=== PATIENT | male | born 1985 | race African-American/Black ===

== ENCOUNTER 2020-11-28 18:06 | Emergency (ER) | payer OTHER ==
[~2020-11-28] VITALS: Ht 177.8 cm; Wt 81.7 kg
[2020-11-28 21:16] VITALS: BP 122/75
== END 2020-11-28 21:18 | disposition home or self-care (01) ==
LOC: M ED 18:06
DX: F43.0 Acute stress reaction (principal); F32.9 Major depressive disorder, single episode, unspecified

== ENCOUNTER 2021-02-07 08:16 | Emergency (ER) | payer OTHER ==
[~2021-02-07] VITALS: Ht 177.8 cm; Wt 82.4 kg
[2021-02-07] MEDS ORDERED: METOCLOPRAMIDE INJ 10MG/2ML VIAL (J2765 PER 1) IV ONE (11:20)
[2021-02-07 11:40] LABS: BASO % 0.6 % (0.0-1.0); EOS % 0.6 % (0.0-3.0); HEMATOCRIT 46.2 % (42.0-52.0); HEMOGLOBIN 15.3 g/dl (13.5-17.5); LYMPH % 56.7 % (24.0-44.0); MEAN CORPUSCULAR HEMOGLOBIN 27.9 pg (27.0-33.0); MEAN CORPUSCULAR HGB CONC 33.1 g/dl (32.0-36.5); MEAN CORPUSCULAR VOLUME 84.2 fl (80.0-96.0); MONO # 0.6 10^3/uL (0.0-0.8); MONO % 11.4 % (2.0-8.0); NEUTROPHILS # 1.6 10^3/uL (1.5-8.5); NEUTROPHILS % 30.5 % (36.0-66.0); PLATELET COUNT, AUTOMATED 234 10^3/uL (150-450); RED BLOOD COUNT 5.49 10^6/uL (4.30-6.10); WHITE BLOOD COUNT 5.4 10^3/uL (4.0-10.0)
--- NOTE | 2021-02-07 12:03 | REP ---
INDICATION: back pain, chronic,. COMPARISON: None. TECHNIQUE: Five views of the lumbar spine FINDINGS: . Lumbar vertebral body heights are preserved. Alignment is normal. Disc spaces are maintained. There is minimal discogenic spurring at L3-4. Pedicles and posterior elements are intact. There is no evidence of spondylolysis or spondylolisthesis. Psoas margins are symmetric. Sacrum and SI joints are intact. IMPRESSION: Mild degenerative disc changes at L3-4. Otherwise negative lumbar spine radiographs. <Electronically signed by Manny Schneider > 02/07/21 [id number]
--- NOTE | 2021-02-07 12:09 | REP ---
INDICATION: right knee pain. COMPARISON: None. TECHNIQUE: Five views of the right knee are provided. FINDINGS: Five views of the 5 right knee demonstrate normal bones, joints, and soft tissues. No fracture or subluxation is seen. No opaque foreign body noted. A normal fabella is present posteriorly. IMPRESSION: Negative right knee series. <Electronically signed by Manny Schneider > 02/07/21 [id number]
[2021-02-07 12:14] LABS: ALBUMIN 3.7 GM/DL (3.2-5.2); ALT/SGPT 24 U/L (12-78); BILIRUBIN,TOTAL 0.4 MG/DL (0.2-1.0); BLOOD UREA NITROGEN 15 MG/DL (7-18); CALCIUM LEVEL 8.9 MG/DL (8.5-10.1); CARBON DIOXIDE LEVEL 26 MEQ/L (21-32); CHLORIDE LEVEL 108 MEQ/L (98-107); CREATININE FOR GFR 1.15 MG/DL (0.70-1.30); GLOMERULAR FILTRATION RATE > 60.0 (>60); GLUCOSE, FASTING 79 MG/DL (70-100); POTASSIUM SERUM 4.6 MEQ/L (3.5-5.1); SODIUM LEVEL 138 MEQ/L (136-145); TOTAL PROTEIN 7.9 GM/DL (6.4-8.2)
--- NOTE | 2021-02-07 12:26 | REP ---
INDICATION: headache, blurred vision, wakes with headache chronic. COMPARISON: None. TECHNIQUE: Helical scanning is acquired. 5 mm axial images were reformatted. Coronal MPR images were generated. 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 Bone window settings demonstrate no bony calvarial defect or fracture. There is evidence of an old appearing blowout fracture of the medial wall of the left orbit. Orbital floor is not included in the field of view. No intraorbital abnormality is appreciated. Visualized paranasal sinuses are clear. On soft tissue window settings, the lateral, 3rd, and 4th ventricles are normal in size and position. There is no evidence of intracranial hemorrhage. No extra-axial fluid collection is seen. No mass or midline shift is seen. There are fairly prominent low-density areas in the subcortical regions of the parietal white matter bilaterally. In this age group, question is raised of demyelinating disease. Consider MRI scanning. IMPRESSION: There is no evidence of intracranial hemorrhage, acute infarction, or mass. However, there are subcortical white matter low-density areas in the parietal lobes bilaterally raising question of demyelinating disorder. Consider MRI scanning. <Electronically signed by Manny Schneider > 02/07/21 [id number]
[2021-02-07 12:28] LABS: RSV AMPLIFICATION NEGATIVE (NEGATIVE)
[2021-02-07 13:20] VITALS: BP 117/70
== END 2021-02-07 13:40 | disposition home or self-care (01) ==
LOC: M ED 08:16
DX: R51.9 Headache, unspecified (principal); H53.8 Other visual disturbances; R93.0 Abnormal findings on diagnostic imaging of skull and head, not elsewhere classified; G89.29 Other chronic pain; M25.561 Pain in right knee; M51.36 Other intervertebral disc degeneration, lumbar region
CPT/HCPCS: 70450; 72110; 73564; 80053; 85025; 87631; 96374; 99284; J2765

== ENCOUNTER → 2021-06-04 | Outpatient (REF) | LOC: M RAD 10:58 | PROVIDERS: ATTEND Internal Medicine | DX: M19.90 Unspecified osteoarthritis, unspecified site (principal) ==

== ENCOUNTER → 2021-06-09 | Outpatient (CLI) | payer OTHER | LOC: M PLALAB 15:46 | PROVIDERS: ATTEND Psychiatry & Neurology Neurology | DX: G93.89 Other specified disorders of brain (principal) ==

== ENCOUNTER 2021-08-23 15:54 | Emergency (ER) | payer OTHER ==
[2021-08-23] MEDS ORDERED: RIZA10TA58 PO (16:22)
[2021-08-23] MEDS ORDERED: ACET1TAB55 PO (16:22)
[2021-08-23] MEDS ORDERED: BUPR150T12 PO (16:22)
[2021-08-23] MEDS ORDERED: AMIT10TA7 PO (16:22)
[2021-08-23] MEDS ORDERED: ISOVUE-370 76% 100ML VIAL As Ordered ONE (16:47)
[2021-08-23 16:48] LABS: BASO % 0.7 % (0.0-1.0); EOS % 0.2 % (0.0-3.0); HEMATOCRIT 46.2 % (42.0-52.0); HEMOGLOBIN 15.4 g/dl (13.5-17.5); LYMPH # 1.8 10^3/uL (1.5-5.0); LYMPH % 40.8 % (24.0-44.0); MEAN CORPUSCULAR HGB CONC 33.3 g/dl (32.0-36.5); MONO # 0.4 10^3/uL (0.0-0.8); MONO % 8.9 % (2.0-8.0); NEUTROPHILS # 2.2 10^3/uL (1.5-8.5); NEUTROPHILS % 49.2 % (36.0-66.0); PLATELET COUNT, AUTOMATED 285 10^3/uL (150-450); WHITE BLOOD COUNT 4.5 10^3/uL (4.0-10.0)
[2021-08-23 17:10] LABS: CK-MB VALUE MASS 2.2 NG/ML (<3.6)
[2021-08-23] MEDS ORDERED: ONDANSETRON 4MG/2ML VIAL As Ordered ONE (17:11)
[2021-08-23 17:23] LABS: ACETAMINOPHEN LEVEL < 2.0 UG/ML (10.0-30.0); ALBUMIN 3.9 GM/DL (3.2-5.2); ALT/SGPT 23 U/L (12-78); BILIRUBIN,DIRECT 0.2 MG/DL (0.0-0.2); BILIRUBIN,TOTAL 0.5 MG/DL (0.2-1.0); BLOOD UREA NITROGEN 9 MG/DL (7-18); CALCIUM LEVEL 9.3 MG/DL (8.5-10.1); CARBON DIOXIDE LEVEL 24 MEQ/L (21-32); CHLORIDE LEVEL 109 MEQ/L (98-107); CREATININE FOR GFR 1.06 MG/DL (0.70-1.30); ETHYL ALCOHOL (ETHANOL) < 0.003 % (0.000-0.010); GLOMERULAR FILTRATION RATE > 60.0 (>60); GLUCOSE, FASTING 91 MG/DL (70-100); POTASSIUM SERUM 3.8 MEQ/L (3.5-5.1); SALICYLATE LEVEL < 1.7 MG/DL (5.0-30.0); SODIUM LEVEL 141 MEQ/L (136-145); TOTAL PROTEIN 7.7 GM/DL (6.4-8.2)
[2021-08-23 17:32] LABS: AMPHETAMINES LEVEL URINE NEGATIVE (NEGATIVE); BARBITURATES URINE NEGATIVE (NEGATIVE); BENZODIAZEPINES URINE NEGATIVE (NEGATIVE); CANNABINOIDS URINE NEGATIVE (NEGATIVE); COCAINE METABOLITE URINE NEGATIVE (NEGATIVE); METHADONE URINE NEGATIVE (NEGATIVE); OPIATES URINE NEGATIVE (NEGATIVE); PHENCYCLIDINE URINE NEGATIVE (NEGATIVE)
[2021-08-23] MEDS ORDERED: ONDANSETRON 4MG/2ML VIAL IV ONE (17:55)
[2021-08-23] MEDS ORDERED: RIZATRIPTAN MLT 10 MG TAB PO PRN (18:20)
[2021-08-23] MEDS ORDERED: HOME MED LIST COMPLETE! XX SCH (20:40)
[2021-08-23 20:52] LABS: RSV AMPLIFICATION NEGATIVE (NEGATIVE)
[2021-08-23 21:59] VITALS: BP 138/80
== END 2021-08-23 22:29 | disposition home or self-care (01) ==
LOC: M ED 15:54 → EDBD 15:54 → M ED 22:29
DX: Z04.1 Encounter for examination and observation following transport accident (principal); Z04.6 Encounter for general psychiatric examination, requested by authority; G89.29 Other chronic pain; M25.579 Pain in unspecified ankle and joints of unspecified foot; M25.561 Pain in right knee; M25.562 Pain in left knee; G43.909 Migraine, unspecified, not intractable, without status migrainosus; Z79.899 Other long term (current) drug therapy
CPT/HCPCS: 36415; 70450; 70486; 71260; 72125; 72128; 72131; 73564; 73610; 74177; 80047; 80048; 80076; 80143; 80307; 82077; 82550; 82553; 84443; 84484; 85025; 87631; 93005; 93041; 94760; 96374; 99285; J2405; Q9967

== ENCOUNTER 2021-09-05 16:45 | Emergency (ER) | payer OTHER ==
[~2021-09-05] VITALS: Ht 180.3 cm; Wt 81.4 kg
[~2021-09-05 16:45] MED LIST: ACET1TAB55 PO; AMIT10TA7 PO; BUPR150T12 PO; RIZA10TA58 PO
[2021-09-05] MEDS ORDERED: D 50CAP2 PO (17:48)
[2021-09-05 18:49] LABS: MEAN CORPUSCULAR HEMOGLOBIN 28.5 pg (27.0-33.0); MEAN CORPUSCULAR HGB CONC 33.3 g/dl (32.0-36.5); MEAN CORPUSCULAR VOLUME 85.6 fl (80.0-96.0); PLATELET COUNT, AUTOMATED 269 10^3/uL (150-450); RED BLOOD COUNT 5.26 10^6/uL (4.30-6.10); WHITE BLOOD COUNT 6.4 10^3/uL (4.0-10.0)
[2021-09-05 19:23] LABS: AMPHETAMINES LEVEL URINE NEGATIVE (NEGATIVE); BARBITURATES URINE NEGATIVE (NEGATIVE); BENZODIAZEPINES URINE NEGATIVE (NEGATIVE); CANNABINOIDS URINE NEGATIVE (NEGATIVE); COCAINE METABOLITE URINE NEGATIVE (NEGATIVE); METHADONE URINE NEGATIVE (NEGATIVE); OPIATES URINE NEGATIVE (NEGATIVE); PHENCYCLIDINE URINE NEGATIVE (NEGATIVE)
[2021-09-05 19:33] LABS: ACETAMINOPHEN LEVEL < 2.0 UG/ML (10.0-30.0); ALBUMIN 3.9 GM/DL (3.2-5.2); ALT/SGPT 29 U/L (12-78); BILIRUBIN,DIRECT < 0.1 MG/DL (0.0-0.2); BILIRUBIN,TOTAL 0.3 MG/DL (0.2-1.0); BLOOD UREA NITROGEN 11 MG/DL (7-18); CALCIUM LEVEL 9.2 MG/DL (8.5-10.1); CARBON DIOXIDE LEVEL 26 MEQ/L (21-32); CHLORIDE LEVEL 110 MEQ/L (98-107); CREATININE FOR GFR 1.12 MG/DL (0.70-1.30); ETHYL ALCOHOL (ETHANOL) < 0.003 % (0.000-0.010); GLOMERULAR FILTRATION RATE > 60.0 (>60); GLUCOSE, FASTING 80 MG/DL (70-100); POTASSIUM SERUM 4.8 MEQ/L (3.5-5.1); SALICYLATE LEVEL < 1.7 MG/DL (5.0-30.0); SODIUM LEVEL 141 MEQ/L (136-145); THYROID STIMULATING HORMONE 0.927 uIU/ML (0.358-3.740); TOTAL PROTEIN 7.7 GM/DL (6.4-8.2)
[2021-09-05 20:25] LABS: RSV AMPLIFICATION NEGATIVE (NEGATIVE)
[2021-09-05 22:57] VITALS: BP 131/87
== END 2021-09-05 22:59 | disposition home or self-care (01) ==
LOC: M ED 16:45
DX: F32.A Depression, unspecified (principal); Z79.899 Other long term (current) drug therapy

== ENCOUNTER 2021-09-15 05:31 | Emergency (ER) | payer OTHER ==
[~2021-09-15] VITALS: Ht 177.8 cm; Wt 81.3 kg
[~2021-09-15 05:31] MED LIST changes: +D 50CAP2 PO
[2021-09-15 05:32] VITALS: BP 180/84
[2021-09-15] MEDS ORDERED: diphenhydrAMINE 50MG/ML VIAL (J1200) IV STA (08:11)
[2021-09-15 08:12] LABS: BASO % 0.5 % (0.0-1.0); EOS % 0.5 % (0.0-3.0); HEMATOCRIT 44.4 % (42.0-52.0); HEMOGLOBIN 15.1 g/dl (13.5-17.5); LYMPH # 1.3 10^3/uL (1.5-5.0); MEAN CORPUSCULAR HEMOGLOBIN 28.6 pg (27.0-33.0); MEAN CORPUSCULAR VOLUME 84.1 fl (80.0-96.0); MONO # 0.5 10^3/uL (0.0-0.8); MONO % 11.5 % (2.0-8.0); NEUTROPHILS # 2.1 10^3/uL (1.5-8.5); NEUTROPHILS % 54.2 % (36.0-66.0); PLATELET COUNT, AUTOMATED 264 10^3/uL (150-450); RED BLOOD COUNT 5.28 10^6/uL (4.30-6.10); WHITE BLOOD COUNT 3.9 10^3/uL (4.0-10.0)
[2021-09-15] MEDS ORDERED: ALPRAZolam 0.5 MG TAB PO ONE (08:15)
[2021-09-15] MEDS ORDERED: METOCLOPRAMIDE INJ 10MG/2ML VIAL (J2765 PER 1) IV ONE (08:15)
[2021-09-15] MEDS ORDERED: KETOROLAC 30 MG/ML 1ML VIAL IV ONE (08:15)
[2021-09-15] MEDS ORDERED: methylPREDNISolone 125MG 2ML VIAL IV ONE (08:15)
[2021-09-15] MEDS ORDERED: NS 1,000 ML IV ONE (08:15)
[2021-09-15 08:46] LABS: BLOOD UREA NITROGEN 12 MG/DL (7-18); CALCIUM LEVEL 9.3 MG/DL (8.5-10.1); CARBON DIOXIDE LEVEL 25 MEQ/L (21-32); CHLORIDE LEVEL 111 MEQ/L (98-107); CREATININE FOR GFR 1.11 MG/DL (0.70-1.30); GLOMERULAR FILTRATION RATE > 60.0 (>60); GLUCOSE, FASTING 88 MG/DL (70-100); MAGNESIUM LEVEL 2.3 MG/DL (1.8-2.4); POTASSIUM SERUM 5.7 MEQ/L (3.5-5.1); SODIUM LEVEL 140 MEQ/L (136-145)
[2021-09-15 08:56] LABS: ERYTHROCYTE SEDIMENTATION RATE 4 mm/hr (0-15)
== END 2021-09-15 10:18 | disposition home or self-care (01) ==
LOC: M ED 05:31
DX: R51.9 Headache, unspecified (principal); Z79.899 Other long term (current) drug therapy
CPT/HCPCS: 80048; 83735; 85025; 85652; 96361; 96374; 96375; 99283; J1200; J1885; J2765; J2930

== ENCOUNTER 2021-09-22 16:17 | Emergency (ER) | payer OTHER ==
[~2021-09-22] VITALS: Ht 177.8 cm; Wt 80.5 kg
[2021-09-22 19:56] VITALS: BP 126/70
== END 2021-09-22 20:57 | disposition home or self-care (01) ==
LOC: M ED 16:17
DX: F33.9 Major depressive disorder, recurrent, unspecified (principal); G43.909 Migraine, unspecified, not intractable, without status migrainosus; Z79.899 Other long term (current) drug therapy